=== PATIENT | male | born 1990 | race Caucasian/White ===

== ENCOUNTER 2024-05-24 02:41 | Emergency (ER) | payer MEDICAID ==
[~2024-05-24] VITALS: Ht 175.3 cm; Wt 70.0 kg
[2024-05-24 02:43] VITALS: BP 124/80; PULSE 70; RESP 18; TEMP 98.7; O2SAT 98
[2024-05-24] MEDS: KETOROLAC 30MG/ML VIAL IM ONE (03:17)
[2024-05-24 03:26] LABS: CLARITY URINE CLOUDY (CLEAR); COLOR URINE YELLOW (YELLOW); GLUCOSE URINE NEGATIVE (NEGATIVE); KETONES URINE NEGATIVE (NEGATIVE); LEUKOCYTE ESTERASE URINE NEGATIVE (NEGATIVE); NITRITE URINE NEGATIVE (NEGATIVE); OCCULT BLOOD URINE NEGATIVE (NEGATIVE); PH URINE 7.5 (4.5-8.0); PROTEIN URINE NEGATIVE (NEGATIVE); SPECIFIC GRAVITY URINE 1.013 (1.005-1.030)
[2024-05-24] MEDS ORDERED: CYCL10TA21 MT (04:17)
[2024-05-24 04:44] LABS: BACTERIA URINE NONE SEEN; RBC URINE 0-2 /hpf (0-2); SQUAMOUS EPITHELIAL CELL URINE NONE SEEN /lpf (RARE/1+); WBC URINE 0-2 /hpf (0-2)
== END 2024-05-24 04:23 | disposition home or self-care (01) ==
LOC: ER 02:41
DX: M54.50 Low back pain, unspecified (principal); Z88.0 Allergy status to penicillin
CPT/HCPCS: 99283; 81003; 96372; J1885

== ENCOUNTER 2024-07-30 05:13 | Emergency (ER) | payer MEDICAID ==
[~2024-07-30] VITALS: Ht 172.7 cm; Wt 72.0 kg
[~2024-07-30 05:13] MED LIST: CYCL10TA21 MT
[2024-07-30 05:16] VITALS: TEMP 98.6; O2SAT 98
[2024-07-30] MEDS: KETOROLAC 30MG/ML VIAL IV STA (06:07)
[2024-07-30 06:28] LABS: CHLORIDE 107 mEq/L (98-107); SODIUM 142 mEq/L (136-145)
[2024-07-30 06:29] LABS: CALCIUM 10.1 mg/dL (8.7-10.4); CARBON DIOXIDE 29 mEq/L (21-32)
[2024-07-30 06:34] LABS: CREATININE 0.8 mg/dL (0.6-1.3); GLUCOSE 87 mg/dL (70-105); UREA NITROGEN BLOOD 13 mg/dL (9-23)
[2024-07-30 06:48] LABS: BASOPHILS % 0.3 % (0.0-2.0); EOSINOPHILS % 1.7 % (0.0-5.0); HEMATOCRIT. 46.8 % (42.0-52.0); HEMOGLOBIN. 15.8 g/dL (14.0-18.0); MEAN CORPUSCULAR HEMOGLOBIN 30.3 pg (28.0-32.0); MEAN CORPUSCULAR HGB CONC 33.8 g/dL (31.0-37.0); MEAN CORPUSCULAR VOLUME 89.8 fL (80.0-94.0); MEAN PLATELET VOLUME 9.2 fl (7.4-10.4); MONOCYTES % 6.1 % (2.0-8.0); NEUTROPHILS % 71.9 % (40.0-76.0); PLATELET 224 x1000/uL (130-400); RED CELL DISTRIBUTION WIDTH 13.8 % (11.6-14.6); WHITE BLOOD COUNT 8.1 x1000/uL (4.5-11.0)
[2024-07-30 06:51] VITALS: BP 121/71; PULSE 81; RESP 16; O2SAT 99
== END 2024-07-30 08:43 | disposition home or self-care (01) ==
LOC: ER 05:13
DX: M54.10 Radiculopathy, site unspecified (principal); Z88.0 Allergy status to penicillin
CPT/HCPCS: 80048; 85025; 36415; 96374; 99283; J1885; Z7610 ×3

== ENCOUNTER 2024-09-20 00:02 | Emergency (ER) | payer MEDICAID ==
[~2024-09-20] VITALS: Ht 175.3 cm; Wt 69.0 kg
[2024-09-20 00:10] VITALS: O2SAT 99
[2024-09-20 00:12] VITALS: BP 130/93; PULSE 94; RESP 16; TEMP 36.8; O2SAT 99
[2024-09-20] MEDS: CYCLOBENZAPRINE 10MG TABLET PO ONE (01:11)
[2024-09-20] MEDS: KETOROLAC 15MG/ML VIAL IM ONE (01:11)
[2024-09-20] MEDS: LIDOCAINE 5% PATCH TOP SCH (01:11)
[2024-09-20] MEDS ORDERED: NAPR-1176 MT (02:27)
[2024-09-20] MEDS ORDERED: LIDO700A15 TP (02:27)
[2024-09-20] MEDS ORDERED: CYCL5TAB3 MT (02:27)
== END 2024-09-20 04:46 | disposition home or self-care (01) ==
LOC: ER 00:02
DX: M54.50 Low back pain, unspecified (principal); G82.20 Paraplegia, unspecified; F12.90 Cannabis use, unspecified, uncomplicated; Z79.1 Long term (current) use of non-steroidal anti-inflammatories (NSAID)
CPT/HCPCS: 99283; 96372; J1885